=== PATIENT | female | born 1995 | race Caucasian/White ===

== ENCOUNTER 2018-05-30 16:10 | Emergency (ER) | payer BC, OTHER ==
--- NOTE | 2018-05-30 16:51 | EDPHY ---
H & P Time Seen by Provider: 05/30/18 16:35 HPI/ROS: CHIEF COMPLAINT: Rectal bleed HISTORY OF PRESENT ILLNESS: Patient had similar symptoms in 2016 in [place] which resolved spontaneously after about a week. She has had some intermittent painless rectal bleeding over the past 2 years, and then yesterday morning she had series of 4 separate episodes with some bright red blood per rectum which was painless. Denies bruising or dizziness or lightheadedness. No chest pain or shortness of breath. No diarrhea or rectal pain or foreign body. REVIEW OF SYSTEMS: No fever or chills. No weight change. PAST MEDICAL HISTORY: Negative Family history: Negative for bleeding disorder Social history: Nonsmoker General Appearance: Alert and conversant, cooperative. Not tachycardic on my examination. Abdomen soft and nontender. Alert, no respiratory distress, ambulatory. Anoscope rectal exam shows internal hemorrhoid inflamed but not actively bleeding, there is also scant blood proximal to the anoscope no active bleeding there. No melena. No petechiae or purpura on the skin. Emergency Department course/MDM: HR 75-80 on my exam. Not hypotensive. More likely from internal hemorrhoid. The patient does not appear to have blood loss significant enough to require transfusion. She is not actively bleeding now. Suppository and GI referral because of blood seen proximal to the scope. I do not think she has indications for emergent endoscopy or hospitalization at this time. Patient states she understands and is in agreement with the plan. Smoking Status: Never smoked Constitutional: Initial Vital Signs Temperature (C) 36.5 C 05/30/18 16:11 Heart Rate 94 05/30/18 16:11 Respiratory Rate 16 05/30/18 16:11 Blood Pressure 140/92 H 05/30/18 16:11 O2 Sat (%) 98 05/30/18 16:11 O2 Delivery Mode Room Air Allergies/Adverse Reactions: No Known Allergies Allergy (Unverified 05/30/18 16:15) Home Medications: Medication Instructions Recorded Control Pill 05/30/18 Hydrocortisone Acetate [Anucort-Hc] 25 mg RC DAILY PRN #4 supp.rect 05/30/18 Minocycline HCl [Minocin 50 mg (*)] 50 mg PO 05/30/18 Departure - Departure Disposition: Home, Routine, Self-Care Clinical Impression: Internal hemorrhoid, bleeding Condition: Good Instructions: Hemorrhoids (ED), Rectal Bleeding (ED) Additional Instructions: Please call gastroenterology Dr. Oscar to schedule office follow-up next week. Likely bleeding from internal hemorrhoid. You also had a little bit of bleeding from above that, which needs gastroenterology evaluation. Return right away if you get worsening bleeding, abdominal or rectal pain, shortness of breath, lightheaded or dizzy. Referrals: Yosef Oscar MD [Medical Doctor] - As per Instructions Prescriptions: Hydrocortisone Acetate [Anucort-Hc] 25 mg RC DAILY PRN #4 supp.rect PRN Reason: rectal irritation or bleeding
[2018-05-30 17:14] VITALS: BP 136/89
== END 2018-05-30 17:14 | disposition home or self-care (01) ==
PROC: 0DJD8ZZ Inspection of Lower Intestinal Tract, Via Natural or Artificial Opening Endoscopic (ICD-10-PCS; principal; 2018-05-30)
DX: K64.8 Other hemorrhoids (principal)

== ENCOUNTER 2018-07-01 03:35 | Emergency (ER) | payer BC, OTHER ==
[2018-07-01] MEDS ORDERED: NS 1,000 ML IV ONE ×2 (03:48)
--- NOTE | 2018-07-01 03:48 | EDPHY ---
H & P Stated Complaint: prepping for colonoscopy,brief syncopal episode, feels dizzy, Time Seen by Provider: 07/01/18 03:48 HPI/ROS: HPI CHIEF COMPLAINT: Lightheadedness, syncope after colonoscopy prep. HISTORY OF PRESENT ILLNESS: This is a very pleasant 22-year-old female she is otherwise healthy, presents emergency room with syncope. For the past 5 days she has been prepping for colonoscopy today. However over the last 24 hr she has had nothing to eat and has been drinking water. She has been doing her colonoscopy prep she reports to me that she has been to the bathroom over 15 times with watery diarrhea nonbloody. She states around 2:30 a.m. She started having some abdominal cramping went to the bathroom she sat on the toilet and had the urge to go had some abdominal cramping and started to feel lightheaded. She stood up walk to the kitchen got tunnel vision and blacked out. She denies injuring herself denies head strike. Denies chest pain or shortness of breath denies palpitations. She decided come the emergency room for evaluation. Since arriving here she is feeling better. She denies any pain anywhere denies chest pain or shortness of breath denies fever denies palpitations. She is getting a colonoscopy for previous rectal bleeding in May. Past Medical History: Denies significant medical history Past Surgical History: Denies significant surgical history Social History: Denies drugs alcohol tobacco. Family History: Noncontributory ROS REVIEW OF SYSTEMS: 10 Systems were reviewed and negative with the exception of the elements mentioned in the history of present illness. Exam Constitutional appears well nontoxic no acute distress triage nursing summary reviewed, vital signs reviewed, awake/alert. Vital signs stable. Eyes normal conjunctivae and sclera, EOMI, PERRLA. HENT normal inspection, atraumatic, moist mucus membranes, no epistaxis, neck supple/ no meningismus, no raccoon eyes. Respiratory clear to auscultation bilaterally, normal breath sounds, no respiratory distress, no wheezing. Cardiovascular rate normal, regular rhythm, no murmur, no edema, distal pulses normal. Gastrointestinal soft, non-tender, no rebound, no guarding, normal bowel sounds, no distension, no pulsatile mass. Genitourinary no CVA tenderness. Musculoskeletal no midline vertebral tenderness, full range of motion, no calf swelling, no tenderness of extremities, no meningismus, good pulses, neurovascularly intact. Skin pink, warm, & dry, no rash, skin atraumatic. Neurologic awake, alert and oriented x 3, AAOx3, moves all 4 extremities equally, motor intact, sensory intact, CN II-XII intact, normal cerebellar, normal vision, normal speech. Psychiatric normal mood/affect. Heme/Lymph/Immune no lymphadenopathy. Differential Diagnosis: Includes but is not limited to in a particular order dehydration, electrolyte disturbance, vasovagal syncope, orthostatic syncope, cardiac arrhythmia, most likely syncope after dehydration due to not eating drinking rather small amount of water, and colonoscopy prep with multiple episodes of diarrhea. Medical Decision Making: Plan for this patient IV establishment IV fluid bolus 2 L normal saline, basic blood work, EKG. And observe. Re-evaluate. Re-evaluation: EKG interpretation by me on record in [employer] system. Impression time of EKG 4:14 a.m., sinus rhythm rate of 75 no signs of cardiac arrhythmia or acute ischemia. Unremarkable EKG. Negative Troponin 0.01. 0612AM: Patient re-evaluated this time resting comfortably no acute distress. She ambulated well throughout the emergency room she has stable vital signs. She p.o. Challenge well. She feels comfortable being discharged home like to go home. She received 2 L of fluid here in the emergency room. She was clinically dehydrated. She denies any chest pain or shortness of breath. The patient's EKG is unremarkable nonischemic no signs of cardiac arrhythmia Troponin negative Negative Normal lytes. Return precautions discussed she understands return emergency develops worsening symptoms includes passing out, chest pain, shortness of breath, vomiting or not doing well. Source: Patient - Personal History LMP (Females 10-55): 8-14 Days Ago Current Tetanus/Diphtheria Vaccine: Yes Current Tetanus Diphtheria and Acellular Pertussis (TDAP): Yes - Medical/Surgical History Hx Asthma: No Hx Chronic Respiratory Disease: No Hx Diabetes: No Hx Cardiac Disease: No Hx Renal Disease: No Hx Cirrhosis: No Hx Alcoholism: No Hx HIV/AIDS: No Hx Splenectomy or Spleen Trauma: No Other PMH: rectal bleeding - Social History Smoking Status: Never smoked Constitutional: Initial Vital Signs Temperature (C) 36.9 C 07/01/18 03:37 Heart Rate 93 07/01/18 03:37 Respiratory Rate 20 07/01/18 03:37 Blood Pressure 106/79 07/01/18 03:37 O2 Sat (%) 96 07/01/18 03:37 O2 Delivery Mode Room Air Allergies/Adverse Reactions: No Known Allergies Allergy (Unverified 07/01/18 03:36) Home Medications: Medication Instructions Recorded Control Pill 05/30/18 Hydrocortisone Acetate [Anucort-Hc] 25 mg RC DAILY PRN #4 supp.rect 05/30/18 Minocycline HCl [Minocin 50 mg (*)] 50 mg PO 05/30/18 Medical Decision Making - Data Points Laboratory Results: Laboratory Results 07/01/18 04:05 07/01/18 04:05 07/01/18 07/01/18 07/01/18 04:07 04:05 04:05 WBC RBC Hgb Hct MCV MCH MCHC RDW Plt Count MPV Neut % (Auto) Lymph % (Auto) [place] % (Auto) Eos % (Auto) Baso % (Auto) Nucleat RBC Rel Count Absolute Neuts (auto) Absolute Lymphs (auto) Absolute Monos (auto) Absolute Eos (auto) Absolute Basos (auto) Absolute Nucleated RBC Immature Gran % Immature Gran # Sodium 138 mEq/L mEq/L (135-145) Potassium 3.6 mEq/L mEq/L (3.5-5.2) Chloride 108 mEq/L mEq/L (97-110) Carbon Dioxide 19 mEq/l L mEq/l (22-31) Anion Gap 11 mEq/L mEq/L (6-14) BUN 12 mg/dL mg/dL (7-23) Creatinine 0.8 mg/dL mg/dL (0.6-1.0) Estimated GFR > 60 Glucose 93 mg/dL mg/dL (70-100) Calcium 9.6 mg/dL mg/dL (8.5-10.4) POC Troponin I 0.01 ng/mL ng/mL (0.00-0.08) Beta HCG, Qual NEGATIVE 07/01/18 04:05 WBC 10.96 10^3/uL H 10^3/uL (3.80-9.50) RBC 5.55 10^6/uL H 10^6/uL (4.18-5.33) Hgb 16.8 g/dL H g/dL (12.6-16.3) Hct 47.1 % H % (38.0-47.0) MCV 84.9 fL fL (81.5-99.8) MCH 30.3 pg pg (27.9-34.1) MCHC 35.7 g/dL g/dL (32.4-36.7) RDW 11.6 % % (11.5-15.2) Plt Count 229 10^3/uL 10^3/uL (150-400) MPV 10.0 fL fL (8.7-11.7) Neut % (Auto) 78.0 % H % (39.3-74.2) Lymph % (Auto) 15.8 % % (15.0-45.0) Platte % (Auto) 5.6 % % (4.5-13.0) Eos % (Auto) 0.1 % L % (0.6-7.6) Baso % (Auto) 0.2 % L % (0.3-1.7) Nucleat RBC Rel Count 0.0 % % (0.0-0.2) Absolute Neuts (auto) 8.56 10^3/uL H 10^3/uL (1.70-6.50) Absolute Lymphs (auto) 1.73 10^3/uL 10^3/uL (1.00-3.00) Absolute Monos (auto) 0.61 10^3/uL 10^3/uL (0.30-0.80) Absolute Eos (auto) 0.01 10^3/uL L 10^3/uL (0.03-0.40) Absolute Basos (auto) 0.02 10^3/uL 10^3/uL (0.02-0.10) Absolute Nucleated RBC 0.00 10^3/uL 10^3/uL (0-0.01) Immature Gran % 0.3 % % (0.0-1.1) Immature Gran # 0.03 10^3/uL 10^3/uL (0.00-0.10) Sodium Potassium Chloride Carbon Dioxide Anion Gap BUN Creatinine Estimated GFR Glucose Calcium POC Troponin I Beta HCG, Qual Medications Given: Discontinued Medications Sodium Chloride (Ns) 1,000 mls @ 0 mls/hr IV EDNOW ONE; Wide Open PRN Reason: Protocol Stop: 07/01/18 03:49 Last Admin: 07/01/18 04:08 Dose: 1,000 mls Sodium Chloride (Ns) 1,000 mls @ 0 mls/hr IV EDNOW ONE; Wide Open PRN Reason: Protocol Stop: 07/01/18 03:49 Last Admin: 07/01/18 04:09 Dose: 1,000 mls Point of Care Test Results: Chemistry 07/01/18 04:07 POC Troponin I 0.01 ng/mL ng/mL (0.00-0.08) Departure - Departure Disposition: Home, Routine, Self-Care Clinical Impression: Dehydration, Syncope Condition: Good Instructions: Dehydration (ED), Syncope (ED) Additional Instructions: 1. I would recommend you rest the rest the day 2. Call your experimental mechanic electrical and explain what happened to you to see if they still wanted to do your colonoscopy today. 3. Return emergency room if you have worsening symptoms includes passing out, chest pain, shortness of breath or not doing well vomiting. Referrals: DEBBY MCINTOSH [Other] - As per Instructions
[2018-07-01 04:20] LABS: PLATELET COUNT 229 10^3/uL (150-400)
[2018-07-01 06:21] VITALS: BP 103/63
--- NOTE | 2018-07-01 08:16 | CPEKG ---
Test Reason : OPEN Blood Pressure : / mmHG Vent. Rate : 075 BPM Atrial Rate : 077 BPM P-R Int : 125 ms QRS Dur : 085 ms QT Int : 376 ms P-R-T Axes : 066 071 050 degrees QTc Int : 420 ms Sinus rhythm Confirmed by Jude Caceres ([id number]) on 07/01/2018 8:16:03 AM Referred By: Jude Caceres Confirmed By:Jude Caceres
== END 2018-07-01 06:21 | disposition home or self-care (01) ==
DX: E86.0 Dehydration (principal); R55 Syncope and collapse
CPT/HCPCS: 84484-ER

== ENCOUNTER 2018-09-03 12:57 | Emergency (ER) | payer BC | END 2018-09-03 14:37 | disposition home or self-care (01) | DX: M79.661 Pain in right lower leg (principal) ==